=== PATIENT | male | born 1970 | race Caucasian/White ===

== ENCOUNTER 2017-04-08 05:54 | Emergency (ER) | payer OTHER ==
[~2017-04-08] VITALS: Ht 182.9 cm; Wt 146.9 kg
[~2017-04-08 05:54] MED LIST: MOTRIN800 MG PO; NORCO 7.5/321 TABLET PO; VALIUM5 MG PO
[2017-04-08] MEDS ORDERED: PRILOSEC20 MG PO (06:39)
[2017-04-08] MEDS ORDERED: ZANTAC150 MG PO (06:39)
[2017-04-08 06:49] LABS: HEMATOCRIT 41.8 % (38.0-50.0); HEMOGLOBIN 14.3 G/DL (12.5-16.6); MCH 30.9 PG (29.0-34.0); MCHC 34.2 G/DL (30.0-36.0); MCV 90.3 FL (86-99); PLATELET COUNT 214 K/uL (156-360); RBC DIS.WIDTH-CV 12.3 % (11.8-14.6); RBC DIS.WIDTH-SD 40.3 % (39-53); RED BLOOD COUNT 4.63 M/uL (4.00-5.50); WHITE BLOOD COUNT 5.7 K/uL (4.1-10.2)
[2017-04-08 07:12] LABS: CHLORIDE 106 MEQ/L (99-109); POTASSIUM 4.2 MEQ/L (3.7-5.4); SODIUM 139 MEQ/L (136-147)
[2017-04-08 07:18] LABS: CREATININE 0.9 MG/DL (0.6-1.3); GFR ESTIMATE (CALCULATED) > 59 mL/min/ (58.99-99999); GLUCOSE 108 mg/dL (70-99); UREA NITROGEN (BUN) 16 mg/dL (9-23)
[2017-04-08 07:22] LABS: TROP-I INTERPRETATION NEGATIVE; TROPONIN-I < 0.01 ng/mL (0.0-0.30)
[2017-04-08 08:43] VITALS: BP 111/70
== END 2017-04-08 08:55 | disposition home health service (06) ==
LOC: EME 05:54
DX: R10.13 Epigastric pain (principal); R07.9 Chest pain, unspecified; I10 Essential (primary) hypertension
CPT/HCPCS: 71046; 80048; 84484; 85027; 93005; 99281; 99285